=== PATIENT | female | born 2000 | race Caucasian/White ===

== ENCOUNTER 2022-02-25 17:20 | Emergency (ER) | payer BC, MEDICAID ==
[2022-02-25] MEDS ORDERED: Doxycycline 100 MG Cap PO ONE (20:39)
== END 2022-02-25 20:51 | disposition home or self-care (01) ==
LOC: MW.ED 17:20
DX: L03.317 Cellulitis of buttock (principal); Z79.899 Other long term (current) drug therapy; Z88.0 Allergy status to penicillin; W57.XXXA Bitten or stung by nonvenomous insect and other nonvenomous arthropods, initial encounter
CPT/HCPCS: 99283; A9270